=== PATIENT | female | born 1955 | race African-American/Black ===

== ENCOUNTER 2024-05-07 20:23 | Observation (INO) | payer OTHER ==
[2024-05-07 21:45] LABS: INR 1.07 (0.83-1.09); PROTHROMBIN TIME (PATIENT) 12.3 SEC (9.7-13.0)
[2024-05-07 21:48] LABS: ACTIVATED PTT 30.4 SECONDS (25.2-36.5)
[2024-05-07] MEDS: SODIUM CHLORIDE 1,000 ML IV SCH (22:09)
[2024-05-07 22:24] LABS: BASO % 0.4 % (0-2.0); EOS % 1.5 % (0-4.5); HEMATOCRIT 38.9 % (32.4-45.2); HEMOGLOBIN 12.5 GM/dL (10.7-15.3); LYMPH % 35.1 % (8-40); MCH 27.3 pg (25.7-33.7); MCHC 32.1 g/dl (32.0-36.0); PLATELET COUNT 256 10^3/uL (134-434); RBC 4.58 M/mm3 (3.60-5.2); WHITE BLOOD COUNT 5.5 K/mm3 (4.0-10.0)
[2024-05-07 23:48] LABS: CALCIUM 11.4 mg/dL (8.5-10.1)
[2024-05-07 23:53] LABS: CREATININE 0.6 mg/dL (0.55-1.3)
[2024-05-07 23:54] LABS: TOT PROT 7.4 g/dl (6.4-8.2)
[2024-05-07 23:55] LABS: BILIRUBIN,TOTAL 0.6 mg/dL (0.2-1)
[2024-05-08 00:01] LABS: BLOOD UREA NITROGEN 12.6 mg/dL (7-18); POTASSIUM 4.2 mmol/L (3.5-5.1)
[2024-05-08 00:18] LABS: EPI CELLS 21 /uL (0-25.1); HYALINE CASTS 0 /uL (0-3.1); PH,URINE 7.5 (5.0-8.0); URINE APPEARANCE CLOUDY; URINE BACTERIA >9,000 /uL (0-1359); URINE BILIRUBIN NEGATIVE (NEGATIVE); URINE COLOR YELLOW; URINE GLUCOSE (UA) NEGATIVE (NEGATIVE); URINE KETONE NEGATIVE (NEGATIVE); URINE LEUK ESTERASE 3+ (NEGATIVE); URINE NITRITE POSITIVE (NEGATIVE); URINE PROTEIN NEGATIVE (NEGATIVE); URINE RBC 8 /uL (0-23.9); URINE WBC 144 /uL (0-25.8)
[2024-05-08] MEDS ORDERED: ACETAMINOPHEN INJECTION 100 ML IVPB ONE (00:51)
[2024-05-08] MEDS ORDERED: CEFTRIAXONE 1 GM/50 ML BAG ONE ×2 (00:51→09:06)
[2024-05-08] MEDS ORDERED: ONDANSETRON 4 MG/2 ML VIAL ONE (00:51)
[2024-05-08] MEDS: LACTATED RINGERS SOLUTION 1000 ML INFUS.BAG IV ONE (01:01)
[2024-05-08] MEDS: ONDANSETRON 4 MG/2 ML VIAL IVPUSH ONE (01:01)
[2024-05-08] MEDS: ACETAMINOPHEN 1000 MG/100 ML BAG IVPB ONE (01:01)
[2024-05-08 07:05] LABS: HEMATOCRIT 37.8 % (32.4-45.2); HEMOGLOBIN 12.3 GM/dL (10.7-15.3); MCH 27.5 pg (25.7-33.7); MCHC 32.5 g/dl (32.0-36.0); MEAN CELL VOLUME 84.5 fl (80-96); MEAN PLT VOLUME 8.8 fl (7.5-11.1); PLATELET COUNT 260 10^3/uL (134-434); RBC 4.48 M/mm3 (3.60-5.2); RDW 14.1 % (11.6-15.6); WHITE BLOOD COUNT 5.3 K/mm3 (4.0-10.0)
[2024-05-08 07:21] LABS: CALCIUM 10.5 mg/dL (8.5-10.1)
[2024-05-08 07:23] LABS: BLOOD UREA NITROGEN 8.3 mg/dL (7-18)
[2024-05-08 07:25] LABS: CREATININE 0.6 mg/dL (0.55-1.3)
[2024-05-08] MEDS ORDERED: ENOXAPARIN NA (PORCINE) 40 MG/0.4 ML DISP.SYRIN SQ ONE (09:06)
[2024-05-08] MEDS: ENOXAPARIN NA (PORCINE) 40 MG/0.4 ML DISP.SYRIN SQ SCH (09:08)
[2024-05-08] MEDS: CEFTRIAXONE 1 GM in DEXTROSE 5%-WATER - 50 ML IVPB SCH (09:09)
[2024-05-08] MEDS ORDERED: PIPERACILLIN/TAZOB 3.375 GM 3.375 GM/50 ML BAG IVPB ONE (18:22)
[2024-05-08] MEDS: PIPERACILLIN/TAZOB 3.375 GM 3.375 GM in DEXTROSE 5%-WATER - 50 ML IVPB SCH (18:24)
[2024-05-09] MEDS: hydrALAZINE HCL 20 MG/ML VIAL IVPB ONE (00:50)
[2024-05-09] MEDS: ONDANSETRON 4 MG/2 ML VIAL IVPB ONE (04:10)
[2024-05-09] MEDS: ASPIRIN 325 MG TABLET PO ONE (04:11)
[2024-05-09] MEDS: ENALAPRILAT DIHYDRATE 2.5 MG/2 ML VIAL IVPB ONE (04:17)
[2024-05-09 05:30] LABS: HEMATOCRIT 42.7 % (32.4-45.2); MCH 27.6 pg (25.7-33.7); MCHC 32.7 g/dl (32.0-36.0); MEAN CELL VOLUME 84.2 fl (80-96); MEAN PLT VOLUME 9.5 fl (7.5-11.1); PLATELET COUNT 292 10^3/uL (134-434); RBC 5.07 M/mm3 (3.60-5.2); WHITE BLOOD COUNT 4.8 K/mm3 (4.0-10.0)
[2024-05-09 07:44] VITALS: BMI 25.4
[2024-05-09] MEDS ORDERED: amLODIPine BESYLATE 10 MG TABLET (FP) PO SCH (10:00)
[2024-05-09] MEDS ORDERED: LISINOPRIL 20 MG TABLET PO SCH (10:00)
[2024-05-09] MEDS: ENOXAPARIN NA (PORCINE) 40 MG/0.4 ML DISP.SYRIN SQ SCH (10:04)
[2024-05-09] MEDS: LISINOPRIL 20 MG TABLET PO SCH (10:04)
[2024-05-09] MEDS: amLODIPine BESYLATE 10 MG TABLET (FP) PO SCH (10:04)
[2024-05-09] MEDS: PIPERACILLIN/TAZOB 3.375 GM 3.375 GM in DEXTROSE 5%-WATER - 50 ML IVPB SCH ×2 (10:05→14:14)
[2024-05-09] MEDS: ASPIRIN COATED 81 MG TABLET.EC PO SCH (11:41)
[2024-05-09] MEDS ORDERED: ATORVASTATIN CA 40 MG TABLET (FP) PO SCH (22:00)
[2024-05-09] MEDS: ATORVASTATIN CA 40 MG TABLET (FP) PO SCH (22:11)
[2024-05-09] MEDS: hydrALAZINE HCL 20 MG/ML VIAL IVPUSH ONE (23:09)
[2024-05-10] MEDS ORDERED: LABETALOL HCL 20 MG/4 ML VIAL ONE (01:12)
[2024-05-10] MEDS: LABETALOL HCL 5 MG/1 ML (100MG/20 ML VIAL) IVPUSH ONE (01:12)
[2024-05-10 13:08] VITALS: RESP 18
[2024-05-10] MEDS: HYDROCHLOROTHIAZIDE 25 MG TABLET (FP) PO SCH (13:38)
[2024-05-13 15:44] VITALS: BP 103/57; PULSE 74; TEMP 98.1
== END 2024-05-13 19:25 | disposition home or self-care (01) ==
LOC: JER 20:23 → JERBED 05-08 00:52 → J7W 05-08 21:02 → J4S 05-09 05:23
PROVIDERS: ADMIT Internal Medicine; ATTEND Internal Medicine
PROC: 3E033NZ Introduction of Analgesics, Hypnotics, Sedatives into Peripheral Vein, Percutaneous Approach (ICD-10-PCS; principal; 2024-05-08)
PROC: 3E03329 Introduction of Other Anti-infective into Peripheral Vein, Percutaneous Approach (ICD-10-PCS; 2024-05-08)
PROC: 3E023GC Introduction of Other Therapeutic Substance into Muscle, Percutaneous Approach (ICD-10-PCS; 2024-05-08)
PROC: 3E033GC Introduction of Other Therapeutic Substance into Peripheral Vein, Percutaneous Approach (ICD-10-PCS; 2024-05-08)
DX: N39.0 Urinary tract infection, site not specified (principal); R47.01 Aphasia; I67.4 Hypertensive encephalopathy; G45.9 Transient cerebral ischemic attack, unspecified; I10 Essential (primary) hypertension; R00.1 Bradycardia, unspecified; R07.9 Chest pain, unspecified; R42 Dizziness and giddiness; H53.8 Other visual disturbances
CPT/HCPCS: 36415; 70450-TC; 70496-TC; 70498-TC; 70551-TC; 71045-TC-FY; 80048; 80053; 80061; 81003; 82306; 82310; 82550; 83036; 83605; 83690; 83735; 83970; 84484; 85025; 85027; 85379; 85610; 85730; 87040; 87086; 93005; 93010; 93306-TC; 93880-TC; 96365; 96367; 96372; 96375; 96376; 97116-GP; 97161-GP; 99285-25; G0378; J0131; Q9967